=== PATIENT | male | born 1980 | race Caucasian/White ===

== ENCOUNTER 2017-09-25 08:37 | Inpatient (IN) | payer MEDICAID ==
[2017-09-25] MEDS ORDERED: ZOLPIDEM TARTRATE 10 MG TABLET PO PRN (09:00)
[2017-09-25] MEDS ORDERED: HALOPERIDOL 5 MG TABLET PO PRN (09:00)
[2017-09-25] MEDS: DiphenhydrAMINE HCL 50 MG/ML VIAL IM ONE ×2 (09:05→09:50)
[2017-09-25] MEDS: HALOPERIDOL LACTATE 5 MG/ML VIAL IM ONE ×2 (09:05→09:51)
[2017-09-25] MEDS: LORazepam 2 MG/ML VIAL IM ONE ×2 (09:05→09:51)
[2017-09-25] MEDS ORDERED: CloNIDine HCL 0.1 MG TABLET PO PRN (10:15)
[2017-09-25] MEDS ORDERED: ALBUTEROL SULFATE HFA 90 MCG/PUFF 8 GM INHALER IH PRN (10:15)
[2017-09-25] MEDS ORDERED: ONDANSETRON HCL 4 MG TABLET PO PRN (10:15)
[2017-09-25] MEDS ORDERED: MAGNESIUM HYDROXIDE SUSPENSION 30 ML UDCUP PO PRN (10:15)
[2017-09-25] MEDS ORDERED: BENZOCAINE/MENTHOL LOZENGE MM PRN (10:15)
[2017-09-25] MEDS ORDERED: LOPERAMIDE HCL 2 MG CAPSULE PO PRN (10:15)
[2017-09-25] MEDS ORDERED: IBUPROFEN 600 MG TABLET PO PRN (10:15)
[2017-09-25] MEDS ORDERED: PETROLATUM,WHITE 71 GM JELLY TP PRN (10:15)
[2017-09-25] MEDS ORDERED: MAG HYDROX/AL HYDROX/SIMETH ES 30 ML SUSPENSION UDCUP PO PRN (10:15)
[2017-09-25] MEDS ORDERED: ACETAMINOPHEN 325 MG TABLET PO PRN (10:15)
[2017-09-25] MEDS ORDERED: BACITRACIN 28.4 GM OINTMENT TP PRN (10:15)
[2017-09-25] MEDS ORDERED: INFLUENZA VIRUS VACCINE QVS 2017-18 (3YR+)/PF 60 MCG/0.5 ML SYRINGE IM ONE (11:45)
[2017-09-25 16:00] VITALS: BP 110/66
[2017-09-25] MEDS: RisperiDONE 1 MG TABLET PO SCH (17:00)
[2017-09-26 03:10] VITALS: BP 118/80
[2017-09-26 08:00] VITALS: BP 125/74
[2017-09-26 08:12] LABS: BASOPHILS % (AUTO) 0.8 % (0.0-2.0); EOSINOPHILS % (AUTO) 2.1 % (1.0-6.0); HEMATOCRIT 48.4 % (41-53); HEMOGLOBIN 16.1 g/dL (13.5-17.5); MEAN CORPUSCULAR HEMOGLOBIN 25.9 pg (26.0-34.0); MEAN CORPUSCULAR HGB CONC 33.4 G/dL (31.0-37.0); MEAN CORPUSCULAR VOLUME 78 fL (80-100); MONOCYTES # (AUTO) 0.4 K/uL (0.1-1.0); MONOCYTES % (AUTO) 6.1 % (2.0-9.0); NEUTROPHILS # (AUTO) 5.2 K/uL (1.8-7.7); PLATELET COUNT (AUTO) 231 K/uL (150-450); RED BLOOD CELL COUNT(AUTO) 6.22 MIL/uL (4.50-5.90); RED CELL DISTRIBUTION WIDTH 14.8 % (11.5-14.5)
[2017-09-26 08:28] LABS: HEMOGLOBIN A1C 5.8 % (4.5-6.2)
[2017-09-26] MEDS: RisperiDONE 1 MG TABLET PO SCH ×2 (08:43→16:55)
[2017-09-26 08:55] LABS: ALANINE AMINOTRANSFERASE 25 U/L (12-78); ALBUMIN 3.4 g/dL (3.4-5.0); ALKALINE PHOSPHATASE 68 U/L (46-116); ANION GAP 13 mmol/L (8-16); ASPARTATE AMINOTRANSFERASE 41 U/L (15-37); BILIRUBIN,TOTAL 0.7 mg/dL (0.1-1.0); CALCIUM, TOTAL 8.8 mg/dL (8.8-10.5); CARBON DIOXIDE 23 mmol/L (22-29); CHLORIDE 103 mmol/L (98-107); CHOL/HDL RATIO 2.3 (4.2-7.3); CHOLESTEROL 181 mg/dL (131-200); CREATININE 0.95 mg/dL (0.60-1.30); FREE T4 (FREE THYROXINE) 0.86 ng/dL (0.76-1.46); GLOMERULAR FILTR. RATE CALC > 60 mL/min (>60); GLUCOSE,RANDOM 89 mg/dL (70-110); HDL CHOLESTEROL 80 mg/dL (40-60); LDL CHOL (CALC.) 93 mg/dL (0-130); POTASSIUM 3.8 mmol/L (3.5-5.1); SODIUM SERUM 139 mmol/L (136-145); THYROID STIMULATING HORMONE 0.33 uIU/mL (0.36-3.74); TOTAL PROTEIN, SERUM 6.7 g/dL (6.4-8.2); TRIGLYCERIDES 40 mg/dL (15-150); UREA NITROGEN, BLOOD 17 mg/dL (7-18)
[2017-09-26 16:38] VITALS: BP 109/65
[2017-09-27 06:46] VITALS: BP 120/67
[2017-09-27] MEDS: RisperiDONE 1 MG TABLET PO SCH ×2 (08:30→16:52)
[2017-09-27 08:32] VITALS: BP 129/72
[2017-09-27 16:39] VITALS: BP 116/71
[2017-09-27] MEDS: NICOTINE 21 MG/24 HOUR PATCH TD SCH (16:52)
[2017-09-28] MEDS: LORazepam 2 MG TABLET PO PRN ×2 (00:34→08:36)
[2017-09-28 00:47] VITALS: BP 125/85
[2017-09-28] MEDS: NICOTINE 21 MG/24 HOUR PATCH TD SCH (08:35)
[2017-09-28] MEDS: RisperiDONE 1 MG TABLET PO SCH (08:35)
[2017-09-28 08:54] VITALS: BP 120/85
[2017-09-28] MEDS ORDERED: RISP1 PO (11:25)
== END 2017-09-28 12:51 | disposition home or self-care (01) | DRG 751 ==
LOC: B3A 09:01
DX: F29 Unspecified psychosis not due to a substance or known physiological condition (principal); F41.9 Anxiety disorder, unspecified; G47.00 Insomnia, unspecified; Z59.0 Homelessness; Z28.21 Immunization not carried out because of patient refusal; Z79.899 Other long term (current) drug therapy; Z56.0 Unemployment, unspecified; F15.90 Other stimulant use, unspecified, uncomplicated
CPT/HCPCS: 83036; 84439; 84443